=== PATIENT | male | born 1955 | race Caucasian/White ===

== ENCOUNTER 2016-07-17 05:55 | Observation (INO) | payer OTHER ==
[2016-07-17] MEDS ORDERED: DEXAMETHASONE 10 MG/ML VIAL IVP ONE (06:00)
[2016-07-17] MEDS ORDERED: LIDOCAINE 1% 2 ML INJ ONE (06:08)
[2016-07-17] MEDS ORDERED: LIDOCAINE 2% 5 ML SDV ONE ×2 (06:44→06:45)
[2016-07-17] MEDS ORDERED: MIDAZOLAM 2 MG/2 ML VIAL ONE (06:44)
[2016-07-17] MEDS ORDERED: PHENYLEPHRINE 10 MG/ML SDV ONE ×2 (06:44→06:46)
[2016-07-17] MEDS ORDERED: fentaNYL 250 MCG/5 ML INJ ONE ×2 (06:44)
[2016-07-17] MEDS ORDERED: ROCURONIUM 50 MG/5 ML VIAL ONE ×2 (06:44→06:45)
[2016-07-17] MEDS ORDERED: DEXAMETHASONE 4 MG/ML VIAL ONE (06:45)
[2016-07-17] MEDS ORDERED: PROPOFOL 200 MG/20 ML VIAL ONE (06:45)
[2016-07-17] MEDS ORDERED: GLYCOPYRROLATE 0.2 MG/1 ML VIAL ONE (06:45)
[2016-07-17] MEDS ORDERED: NEOSTIGMINE METHYLSULFATE 5 MG/5 ML SYR ONE (06:45)
[2016-07-17] MEDS ORDERED: PROPOFOL/EMULSION 500 MG/50 ML BOTTLE IV ONE ×3 (06:45→09:43)
[2016-07-17] MEDS ORDERED: ONDANSETRON 4 MG/2 ML VIAL ONE ×2 (06:46→09:22)
[2016-07-17] MEDS ORDERED: LIDO/EPI 1% **Not for Epidural 20 ML MDV ONE (07:00)
[2016-07-17] MEDS ORDERED: ceFAZolin 2 GM/DEXTROSE 100 ML IV ONE (07:00)
[2016-07-17] MEDS ORDERED: METOCLOPRAMIDE 10 MG/2 ML VIAL ONE (07:34)
[2016-07-17] MEDS ORDERED: RANITIDINE 50 MG/2 ML VIAL ONE (07:54)
[2016-07-17] MEDS ORDERED: HYDROmorphONE/DILAUDID 2 MG/ML INJ ONE (08:14)
[2016-07-17] MEDS ORDERED: ESMOLOL HCL 100 MG/10 ML VIAL IV ONE (08:15)
[2016-07-17] MEDS ORDERED: NALOXONE HCL 0.4 MG/ML INJ ONE (10:51)
[2016-07-17] MEDS ORDERED: ONDANSETRON 4 MG/2 ML VIAL IVP PRN (11:36)
[2016-07-17] MEDS ORDERED: D5W 1/2 NS W/ 20 KCl/L 1,000 ML IV SCH (11:45)
[2016-07-17 12:18] LABS: IONIZED CALCIUM 1.17 MMOL/L (1.12-1.30)
[2016-07-17 16:07] VITALS: RESP 16
--- NOTE | 2016-07-17 16:43 | GOP ---
[f rep st] OPERATIVE REPORT DATE OF OPERATION: 07/17/2016 SURGEON: Michi Mcmanus MD [employer]TER MACHINE: Js Brian. ANESTHESIA: General. PREOPERATIVE DIAGNOSIS: Left thyroid mass suspicious for papillary cancer. 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 PROCEDURE PERFORMED: Total thyroidectomy. FINDINGS: Frozen section evaluation was positive for evidence of papillary cancer. Both recurrent l aryngeal nerves and all 4 parathyroid glands were identified and preserved. SPECIMENS: Left and right thyroid lobes. ESTIMATED BLOOD LOSS: Less than 50 cc. INDICATIONS: The patient is a 61-year-old man who was found have a left thyroid mass. Needle biops y was positive for suspicion of papillary cancer. He presents for definitive diagnosis. DESCRIPTION OF PROCEDURE: Patient was taken the OR, positively identified, placed on monitors and g eneral anesthesia was induced. He was prepped and draped in normal sterile fashion. An incision wa s marked along the anterior neck skin crease and infiltrated with 3 cc of 1% lidocaine with 1:100,00 0 epinephrine. The skin was sharply incised. Dissection was carried down through the platysma. Villegas perior and inferior subplatysmal flaps were then raised and secured. The strap muscles were divided in the midline and elevated off the left lobe of the thyroid gland. The superior vascular pedicle w as isolated, clamped, cut, and ligated with 2-0 silk. The middle thyroid vein and other feeding ves sels were likewise either divided using bipolar cautery or clamped, cut and ligated with 2-0 or 3-0 ligatures. The thyroid was rotated medially. Dissecting carefully along the thyroid capsule itself, both the superior and inferior parathyroid glands were identified and dissected off the capsule. Be rry's ligament was then divided after identifying the recurrent laryngeal nerve and the lobe was michelle vated off the trachea. The isthmus was crossclamped and divided. The lobe was then sent for frozen section evaluation and found to be positive for papillary cancer. We therefore examined the tracheoesophageal groove to determine whether or not to proceed with centr al compartment neck dissection. There was very little tissue in this region and no visible or palpa ble lymph nodes, either normal or pathological in appearance. Therefore, due to the potential risk of injury to the nerve and/or parathyroid function, I elected not to proceed with the elective neck dissection. Attention was then turned to the right thyroid lobe which was excised in the same fashion, lifting o ff the strap muscles, isolating the superior vascular pedicle which was clamped, cut and ligated wit h 2-0 silk. Following along the thyroid capsule, identified both parathyroid glands and the recurre nt laryngeal nerve, dividing vessels as needed, dividing Soto's ligament, delivering the lobe off t he trachea and sending it for pathologic evaluation. At this point, the wound was irrigated with sterile saline. Hemostasis was assured. A 10-Maltese ro und drain was placed through a separate stab incision, secured with a drain stitch. The wound was t hen closed using a combination of 3-0 Vicryl, 4-0 Monocryl and 5-0 Prolene. Now finally placing the pressure dressing, the case was terminated. The patient was taken to postop care in good condition, having tolerated procedure well. COMPLICATIONS: None. /[id number]/MODL
--- NOTE | 2016-07-17 17:47 | SOAPPROG ---
SOAP Progress Note Assessment/Plan: Assessment: Left papillary thyroid cancer. Pt feeling good. No symptoms of low calcium, but the latest ionized calcium was 1.10. So we will need to watch him for sxs of low CA. Plan: Likely discharge in the morning. 07/17/16 17:44 Subjective: Pt feels good. Pain 3/10. No sxs of low CA. Objective: Vital Signs Temp Pulse Resp BP Pulse Ox 37.1 C 67 16 141/94 H 92 07/17/16 15:41 07/17/16 15:41 07/17/16 15:41 07/17/16 15:41 07/17/16 15:41 07/16/16 07/17/16 07/18/16 05:59 05:59 05:59 Intake Total 2175 Output Total 25 Balance 2150 Pt looks good, neck flat. Ca is 1.10. ICD10 Worksheet Patient Problems: Problems Problem Status Onset Papillary thyroid carcinoma Acute - ICD10 Problem Qualifiers (1) Papillary thyroid carcinoma
[2016-07-17] MEDS ORDERED: OXYCODONE/APAP 5/325 TAB PO PRN (17:52)
[2016-07-17 23:21] LABS: IONIZED CALCIUM 1.07 MMOL/L (1.12-1.30)
[2016-07-18 05:32] LABS: IONIZED CALCIUM 1.08 MMOL/L (1.12-1.30)
[2016-07-18 07:20] VITALS: BP 147/90; PULSE 61; TEMP 97.8; O2SAT 94
[2016-07-18] MEDS ORDERED: BACITRACIN OINTMENT 1 PACKET TP ONE (07:23)
--- NOTE | 2016-07-18 07:52 | SOAPPROG ---
SOAP Progress Note Assessment/Plan: Assessment: POD 1 s/p thyroidectomy. Doing quite well. Pain is 3 out of 10. No symptoms of low calcium. Drain removed, dressing changed. - Discharge home today - Patient will remove dressing tomorrow - Follow-up next week for suture removal - Synthroid and percocet prescriptions given 07/18/16 07:49 Subjective: POD 1 s/p thyroidectomy. Doing well. No complaints this AM. He has no symptoms of low calcium. No dysphagia. Pain is 3 out of 10. Objective: Vital Signs Temp Pulse Resp BP Pulse Ox 36.6 C 61 16 147/90 H 94 07/18/16 07:17 07/18/16 07:17 07/18/16 07:17 07/18/16 07:17 07/18/16 07:17 07/17/16 07/18/16 07/19/16 05:59 05:59 05:59 Intake Total 2845 Output Total 1365 Balance 1480 Voice strong, no stridor Oropharynx normal Drain removed Neck flat Incision clean, dry, intact Bacitracin applied to incision and another dressing applied ICD10 Worksheet Patient Problems: Problems Problem Status Onset Papillary thyroid carcinoma Acute
--- NOTE | 2016-07-23 09:14 | GDS ---
[f rep st] DISCHARGE SUMMARY HISTORY OF PRESENT ILLNESS: This is a 61-year-old male with a multinodular goiter with a dominant l eft cystic and solid nodule suspicious for papillary carcinoma as determined by FNA. The patient pr esents to the operating room for total thyroidectomy. HOSPITAL COURSE: The patient was admitted to the operating room on July 17, 2016, for a total thyro idectomy. The patient was admitted overnight for airway monitoring. The patient was discharged rehana e on July 18, 2016, after his CLIFFORD drain was removed, and a pressure dressing was applied. The patie nt was discharged home in stable condition. DISCHARGE CONDITION: Stable. The patient was instructed to follow up the following week in our office for suture removal. /[id number]/MODL
== END 2016-07-18 08:52 | disposition home or self-care (01) ==
LOC: F3E 05:55
PROVIDERS: ADMIT Otolaryngology; ATTEND Otolaryngology
PROC: 0GTK0ZZ Resection of Thyroid Gland, Open Approach (ICD-10-PCS; principal; 2016-07-17 07:15)
DX: C73 Malignant neoplasm of thyroid gland (principal); I10 Essential (primary) hypertension
CPT/HCPCS: 60240; G0378; J0690; J1100; J1170; J2250; J2310; J2370; J2405; J2704; J2710; J2765; J2780; J3010

== ENCOUNTER → 2016-09-10 | Outpatient (CLI) | payer OTHER | LOC: FIMAGING 09:38 | PROVIDERS: ATTEND Internal Medicine Endocrinology, Diabetes & Metabolism | DX: C73 Malignant neoplasm of thyroid gland (principal) ==

== ENCOUNTER → 2017-02-11 | Outpatient (CLI) | payer OTHER | LOC: FIMAGING 07:40 | PROVIDERS: ATTEND Family Medicine | DX: R91.1 Solitary pulmonary nodule (principal) ==